=== PATIENT | female | born 1960 | race Caucasian/White ===

== ENCOUNTER 2022-11-06 18:24 | Emergency (ER) | payer OTHER ==
[~2022-11-06] VITALS: Ht 157.5 cm; Wt 97.0 kg
[2022-11-06 18:29] VITALS: BP 184/94
[2022-11-06] MEDS ORDERED: ketorolac trometh inj. 60 MG/2 ML VIAL IM ONE (20:45)
[2022-11-06] MEDS ORDERED: NAPR-56 PO (22:02)
== END 2022-11-06 22:32 | disposition home or self-care (01) ==
LOC: ER 18:25
DX: M25.561 Pain in right knee (principal); M25.511 Pain in right shoulder; G89.29 Other chronic pain; Z90.710 Acquired absence of both cervix and uterus; Z72.89 Other problems related to lifestyle; Z88.2 Allergy status to sulfonamides; Z88.0 Allergy status to penicillin; Z88.5 Allergy status to narcotic agent; W18.39XA Other fall on same level, initial encounter; Y93.89 Activity, other specified; Y92.89 Other specified places as the place of occurrence of the external cause; Y99.8 Other external cause status
CPT/HCPCS: 73564; 96372; 99284; J1885; A6449